=== PATIENT | female | born 1980 | race Asian ===

== ENCOUNTER 2021-01-12 09:29 | Day surgery (SDC) | payer BC ==
[2021-01-12] MEDS ORDERED: Dexamethasone 4 MG/ML 5 ML MDV IVPUSH ONE (09:30)
[2021-01-12] MEDS ORDERED: Lidocaine 2% 5 ML SDV INJECT ONE (09:30)
[2021-01-12] MEDS ORDERED: Midazolam 1 MG/ML 2 ML SDV IV ONE (09:30)
[2021-01-12] MEDS ORDERED: Ondansetron 4 MG/2 ML SDV IVPUSH ONE (09:30)
[2021-01-12] MEDS ORDERED: fentaNYL 100 MCG/2 ML SDV IV ONE (09:30)
[2021-01-12] MEDS ORDERED: Neostigmine Methylsulfate 10 MG/10 ML MDV IVPUSH ONE (09:30)
[2021-01-12] MEDS ORDERED: Sodium Chloride 0.9% 10 ML Syringe FLUSH PRN (09:30)
[2021-01-12] MEDS ORDERED: Rocuronium 100 MG/10 ML MDV IV ONE (09:30)
[2021-01-12] MEDS ORDERED: Propofol 200 MG/20 ML SDV IV ONE (09:30)
[2021-01-12] MEDS ORDERED: Glycopyrrolate 0.2 MG/ML 5 ML MDV IV ONE (09:30)
[2021-01-12] MEDS ORDERED: Ketorolac 30 MG/ML SDV IVPUSH ONE (09:30)
[2021-01-12] MEDS ORDERED: Lactated Ringers 1,000 ML IV ONE (09:30)
[2021-01-12] MEDS: Lactated Ringers 1,000 ML IV SCH (10:40)
[2021-01-12] MEDS: ceFAZolin 1 GM Vial IVPUSH ONE (10:52)
[2021-01-12] MEDS ORDERED: ceFAZolin 1 GM in Sodium Chloride 0.9% 50 ML IV ONE (11:00)
--- NOTE | 2021-01-12 11:36 | PCM.PN ---
- General Info Date of Service: 01/12/21 - Review of Systems Systems Review Comment:: 40 y/o female with symptomatic cholelithiasis here for cholecystectomy. She is stable to proceed. There has been no significant change to her health status since her recent H and P. I have again discussed the proposed cholecystectomy with the patient. Questions answered and she agrees to proceed. - Patient Data Vitals - Most Recent: Last Vital Signs Temp 99.3 F 01/12/21 09:40 Pulse 74 01/12/21 09:40 Resp 16 01/12/21 09:40 BP 123/74 01/12/21 09:40 Pulse Ox 97 01/12/21 09:40 Weight - Most Recent: 136 lb Lab Results Last 24 Hours: Laboratory Results - last 24 hr 01/12/21 Range/Units 09:40 Urine HCG, Qual Negative (NEGATIVE) Med Orders - Current: Current Medications Lactated Ringer's (Ringers, Lactated) 1,000 mls @ 125 mls/hr IV ASDIRECTED SACHA Last Admin: 01/12/21 10:40 Dose: 125 mls/hr Documented by: Sodium Chloride (Saline Flush) 10 ml FLUSH ASDIRECTED PRN PRN Reason: Keep Vein Open Discontinued Medications Cefazolin Sodium (Ancef) 1 gm IVPUSH ONETIME ONE Stop: 01/12/21 11:01 Last Admin: 01/12/21 10:52 Dose: 1 gm Documented by: - Patient Data Lab Results Last 24 hrs: Laboratory Results - last 24 hr 01/12/21 Range/Units 09:40 Urine HCG, Qual Negative (NEGATIVE) Sepsis Event Note - Focused Exam Vital Signs: Vital Signs Temp Pulse Resp BP Pulse Ox 01/12/21 09:40 99.3 F 74 16 123/74 97 - Problem List Review Problem List Initiated/Reviewed/Updated: Yes - My Orders Last 24 Hours: My Active Orders 01/12/21 Breakfast Nothing Per Oral Diet [DIET] 01/12/21 09:30 Patient Status [ADT] Routine Patient to Empty Bladder [RC] ASDIRECTED RT Incentive Spirometry [RC] ASDIRECTED Verify Patient Consent Obtain [RC] ASDIRECTED Lactated Ringers [Ringers, Lactated] 1,000 ml IV ASDIRECTED Sodium Chloride 0.9% [Saline Flush] 10 ml FLUSH ASDIRECTED PRN Peripheral IV Insertion Adult [OM.PC] Routine Sequential Compression Device [OM.PC] Routine - Assessment Assessment:: Symptomatic Cholelithiasis - Plan Plan:: Cholecystectomy
[2021-01-12] MEDS: Bupivacaine 0.5%/EPINEPHrine 1:200,000 50 ML MDV INJECT ONE (11:43)
--- NOTE | 2021-01-12 12:52 | PCM.OPNOTE ---
- General Post-Op/Procedure Note Date of Surgery/Procedure: 01/12/21 Operative Procedure(s): Laparoscopic Cholecystectomy Findings: Multiple gallstones Lower abdominal adhesions from previous surgery Pre Op Diagnosis: Symptomatic Cholelithiasis Post-Op Diagnosis: Same Anesthesia Technique: General ET Tube Primary Surgeon: Prem Coulter Pathology: Gallbladder with stones EBL in mLs: 10 Complications: None Condition: Good
[2021-01-12] MEDS: HYDROmorphone 2 MG/ML SDV IVPUSH ONE (13:51)
--- NOTE | 2021-01-12 14:03 | OR ---
DATE OF OPERATION: 01/12/2021 SURGEON: Prem Coulter MD PREOPERATIVE DIAGNOSIS: Symptomatic cholelithiasis. POSTOPERATIVE DIAGNOSIS: Symptomatic cholelithiasis. OPERATION PERFORMED: Laparoscopic cholecystectomy. INDICATIONS FOR SURGERY: This 40-year-old female has recently developed symptoms of upper abdominal postprandial pain. Workup has identified cholelithiasis, which was felt to be the source of her symptoms and she comes for cholecystectomy. FINDINGS: The patient's gallbladder does not appear acutely inflamed, but does have multiple stones. The adjacent liver and other intraabdominal organs appear normal as viewed laparoscopically. The patient does have adhesions in the lower abdomen from previous surgery. DESCRIPTION OF PROCEDURE: The patient was taken to the operating room. She was given general endotracheal anesthesia and the abdomen was sterilely prepped and draped. A supraumbilical stab wound incision was made, through which a Veress needle was inserted and pneumoperitoneum via this needle to a pressure of 15 mmHg was achieved with carbon dioxide. The Veress needle was then replaced with a 12 mm trocar into which the 5 mm variable-angled laparoscopic camera was inserted. Under direct visualization, 5 mm trocars were placed in the subxiphoid midline and then 2 areas of the right abdomen. All trocar sites were infiltrated with Marcaine prior to incision. Intra-abdominal inspection was carried out and attention was turned to the gallbladder. It was secured with grasping forceps and retracted superiorly and anteriorly. Fatty tissue and peritoneum overlying the lower portion of the gallbladder and the cystic duct was carefully cleared, exposing the structures in this area. The cystic artery was identified and once it was isolated, it was doubly clipped and divided near the gallbladder. Additional dissection completely cleared the triangle of Calot and identified the lower portion of the gallbladder, but also identified the common bile duct. The cystic duct was noted to be very short and dilated with a stone impacted within it. Dissection was carried out to clearly identify this area and it was determined that clips could be placed just at the lower edge of the stone and occluding the cystic duct, but still not compromising or injuring the common bile duct. This was then carried out with 2 clips placed right adjacent to the impacted stone and close to but not compromising the common bile duct, which was clearly identified. With these 2 clips, the portion of the cystic duct was divided and then an additional 2 clips were placed to completely occlude the remainder of the wide cystic duct. These again are adjacent to the impacted stone, but also did not cause any compromise or injury to the common bile duct. The cystic duct was completely divided above these clips and careful inspection was carried out showing no indication of complication. The gallbladder was then dissected free from the undersurface of the liver using the hook cautery device. When it was completely freed, it was placed into an Endo retrieval bag and extracted through the umbilical trocar site. Reinspection was carried out. Some small stone fragments are retrieved. Good hemostasis was maintained in the gallbladder bed during the dissection and with careful inspection showing no sign of any complication. The trocars were removed under direct visualization and the pneumoperitoneum was evacuated. The umbilical trocar site was closed with a [id number] 0 Vicryl suture. Wounds were irrigated with Betadine and saline solution, and skin incisions approximated with interrupted 4-0 Vicryl in subcuticular stitch. Benzoin and Steri-Strips were applied followed by antibiotic ointment and sterile dressings. The patient was awakened, extubated, and taken from the operating room in satisfactory condition. ESTIMATED BLOOD LOSS: 10 mL. COMPLICATIONS: None. PROGNOSIS: Good. /[id number] LUKE/YOCASTA FISHER
[2021-01-12] MEDS: Ondansetron 8 MG Tab.DIS PO ONE (15:25)
== END 2021-01-12 15:55 | disposition home or self-care (01) ==
LOC: FB.SDS 09:29
PROVIDERS: ATTEND Surgery
DX: K80.64 Calculus of gallbladder and bile duct with chronic cholecystitis without obstruction (principal); Z98.890 Other specified postprocedural states
CPT/HCPCS: 00790-QZ; 81025; 88304; 94150; A9270-GY; J0690; J1100; J1170; J1885; J2250; J2405; J2704; J2710; J3010; J3490; J7120